=== PATIENT | male | born 1965 | race Caucasian/White ===

== ENCOUNTER 2021-11-23 09:08 | Inpatient (IN) | payer OTHER ==
[~2021-11-23] VITALS: Ht 175.3 cm; Wt 77.1 kg
[2021-11-23 09:41] LABS: HEMOGLOBIN 13.7 gm/dl (14.0-17.5); RED BLOOD COUNT 4.62 M/UL (4.20-5.50); WHITE BLOOD COUNT 12.2 K/UL (4.5-11.0)
[2021-11-23 10:05] LABS: BUN/CREATININE RATIO 17 (0-10)
[2021-11-23] MEDS ORDERED: BUPRENORPHIN-N1 EACH SL (13:28)
[2021-11-23] MEDS ORDERED: VITAMIN B-121000 MCG PO (13:29)
[2021-11-23] MEDS ORDERED: PRILOSEC OTC20 MG PO (13:29)
[2021-11-24 02:36] LABS: HEMOGLOBIN 12.1 gm/dl (14.0-17.5); WHITE BLOOD COUNT 11.2 K/UL (4.5-11.0)
[2021-11-24 02:38] LABS: RED BLOOD COUNT 4.12 M/UL (4.20-5.50)
[2021-11-24 03:24] LABS: BUN/CREATININE RATIO 16 (0-10)
[2021-11-25 07:47] LABS: HEMOGLOBIN 12.4 gm/dl (14.0-17.5); RED BLOOD COUNT 4.39 M/UL (4.20-5.50)
[2021-11-25 07:51] LABS: WHITE BLOOD COUNT 5.4 K/UL (4.5-11.0)
[2021-11-25 08:57] LABS: BUN/CREATININE RATIO 9 (0-10)
[2021-11-26 07:57] LABS: RED BLOOD COUNT 4.41 M/UL (4.20-5.50)
[2021-11-26 08:23] LABS: BUN/CREATININE RATIO 7 (0-10)
[2021-11-26] MEDS ORDERED: AUGMENTIN 875-1 EACH PO (10:37)
[2021-11-26] MEDS ORDERED: ELIQUIS 5 MG TAB5 MG PO (10:37)
[2021-11-26] MEDS ORDERED: NORVASC5 MG PO (11:12)
== END 2021-11-26 13:25 | disposition home or self-care (01) | DRG 871 ==
LOC: ER1 09:08 → CDU 11:56 → MED SURG 4 11:56
PROVIDERS: Internal Medicine; Student in an Organized Health Care Education/Training Program; ADMIT Internal Medicine
DX: A41.9 Sepsis, unspecified organism (principal); J18.9 Pneumonia, unspecified organism; J96.01 Acute respiratory failure with hypoxia; I26.99 Other pulmonary embolism without acute cor pulmonale; R04.2 Hemoptysis; F11.20 Opioid dependence, uncomplicated; Z20.822 Contact with and (suspected) exposure to COVID-19; I10 Essential (primary) hypertension; F17.210 Nicotine dependence, cigarettes, uncomplicated; F19.10 Other psychoactive substance abuse, uncomplicated; R65.20 Severe sepsis without septic shock; B18.2 Chronic viral hepatitis C; Z91.14 Patient's other noncompliance with medication regimen; Z82.49 Family history of ischemic heart disease and other diseases of the circulatory system; Z98.890 Other specified postprocedural states; Z79.899 Other long term (current) drug therapy; Z87.01 Personal history of pneumonia (recurrent)
CPT/HCPCS: 36415; 36600; 71045; 80048; 80053; 82550; 82553; 82803; 83605; 84484; 85025; 85610; 85730; 86140; 87040; 93005; 93970; 94760; 96374; 99285; J0456; J0696; J1644; J2185; J7030; Q9967; U0002